=== PATIENT | female | born 1965 | race African-American/Black ===

== ENCOUNTER 2016-09-05 12:25 | Emergency (ER) | payer SELFPAY ==
[2016-09-05 12:33] VITALS: BP 116/52
--- NOTE | 2016-09-05 12:42 | ER Document Report ---
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 Him and aching. After doing that caused more severe pain. No cervical spine pain. No radiculopathy. Associated Symptoms: None Exacerbated by: Movement Relieved by: Denies Similar symptoms previously: Yes Recently seen / treated by doctor: No - ROS ROS below otherwise negative: Yes Systems Reviewed and Negative: Yes All other systems reviewed and negative - DERM Skin Color: Normal Past Medical History - General Information source: Patient - Social History Smoking Status: Never Smoker Frequency of alcohol use: None Drug Abuse: None Lives with: Family Family History: Reviewed & Not Pertinent Patient has suicidal ideation: No Patient has homicidal ideation: No - Medical History Medical History: Negative Renal/ Medical History: Denies: Hx Peritoneal Dialysis Musculoskeltal Medical History: 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 IN LAST 30 DAYS: No - HEENT HEENT: Atraumatic, Normocephalic - NECK Neck: Supple - RESPIRATORY O2 Sat by Pulse Oximetry: 95 - MUSCULOSKELETAL/EXTREMETIES Musculoskeletal/Extremeties: MAEW, FROM, Tender - Right deltoid muscle and tendon at the bicipital insertion - NEURO Level of Consciousness: Awake, Alert Motor/Sensory: No Motor Deficit, No Sensory Deficit - DERM Integumentary: Warm, Dry, No Rash Course - Vital Signs Vital signs: Temp Pulse Resp BP Pulse Ox 98.3 F 80 18 116/52 L 95 09/05/16 12:31 09/05/16 12:31 09/05/16 12:31 09/05/16 12:31 09/05/16 12:31 Procedures - Immobilization Right Shoulder Time completed: 13:05 Pre-Proc Neuro Vasc Exam: Normal Immobilizer type: Sling Performed by: PCT Post-Proc Neuro Vasc Exam: Normal Alignment checked and good: Yes Discharge - Discharge Clinical Impression: right deltoid muscle strain, tendinitis Condition: Good Disposition: HOME, SELF-CARE Instructions: Warm Packs ([facility]), Anti-Inflammatory Medication ([facility]), Toradol Injection ([facility]), Ultram ([facility]), Muscle Strain ([facility]) Additional Instructions: warm compress see your doctor for follow up if persists expect it to hurt for a few more days to er any concerns Please complete the patient satisfaction survey if you get one, and return it.. If you do not receive a survey, then you can go to the [facility] website, [email or web address] and place your comments about your very good care. Thank you very much. It was a pleasure being your medical provider today. Prescriptions: Ibuprofen [Motrin 600 mg Tablet] 600 mg PO Q8HP PRN #30 tablet PRN Reason: Tramadol HCl [Ultram 50 mg Tablet] 50 mg PO ASDIR PRN #20 tablet PRN Reason: Forms: Return to Work
[2016-09-05] MEDS ORDERED: KETOROLAC TROMETHAMINE 60 MG/2 ML SDV IM ONE (12:47)
== END 2016-09-05 13:10 | disposition home or self-care (01) ==
LOC: ER 12:25
DX: S46.811A Strain of other muscles, fascia and tendons at shoulder and upper arm level, right arm, initial encounter (principal); X50.0XXA Overexertion from strenuous movement or load, initial encounter; Y93.89 Activity, other specified; Y92.89 Other specified places as the place of occurrence of the external cause; Y99.0 Civilian activity done for income or pay; M77.9 Enthesopathy, unspecified
CPT/HCPCS: 99283; 96372; J1885

== ENCOUNTER 2016-09-05 22:11 | Emergency (ER) | payer SELFPAY ==
[2016-09-05] MEDS ORDERED: OXYCODONE-ACETAMINOPHEN 5-325 MG TABLET PO ONE (23:27)
--- NOTE | 2016-09-05 23:33 | ER Document Report ---
HPI - HPI Patient complains to provider of: right shoulder pain Onset: This morning Onset/Duration: Sudden, Persistent Quality of pain: Throbbing Severity: Severe Pain Level: 5 Context: Patient presents emergency department with complaints of right sided shoulder pain started this morning. Patient was evaluated and treated in the emergency department earlier today for same pain. Patient reports she's been taking the Motrin all day without relief of pain. She denies injury. She reports she works in the [employer] and yesterday was lifting a lot of heavy pots. Patient denies past medical history of injury to the area. Denies other symptoms such as fever vomiting diarrhea Associated Symptoms: None Exacerbated by: Movement Relieved by: Denies Similar symptoms previously: Yes Recently seen / treated by doctor: Yes - REPRODUCTIVE LMP: na - DERM Skin Color: Normal Past Medical History - General Information source: Patient Last Menstrual Period: menopause - Social History Smoking Status: Current Every Day Smoker Cigarette use (# per day): Yes Chew tobacco use (# tins/day): No Frequency of alcohol use: None Drug Abuse: None Occupation: [employer] Lives with: Family Family History: Reviewed & Not Pertinent Patient has suicidal ideation: No Patient has homicidal ideation: No Renal/ Medical History: Denies: Hx Peritoneal Dialysis GI Medical History: Reports: Hx Gastroesophageal Reflux Disease Musculoskeltal Medical History: 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 IN LAST 30 DAYS: No - HEENT HEENT: Atraumatic, Normocephalic - NECK Neck: Normal Inspection, Supple. negative: Lymphadenopathy-Left, Lymphadenopathy-Right - RESPIRATORY Respiratory: Breath Sounds Normal, No Respiratory Distress O2 Sat by Pulse Oximetry: 96 - CARDIOVASCULAR Cardiovascular: Regular Rate - MUSCULOSKELETAL/EXTREMETIES Musculoskeletal/Extremeties: Tender - right shoulder ttp, no obvious deformity, no swelling/warmth, no erythema, c/o pain with movement, good radial pulse, brisk cap refill Course - Re-evaluation Re-evalutation: 09/05/16 23:34 Suspect bursitis. Patient was instructed on bursitis care and treatment. She was instructed to follow up with orthopedics on Wednesday. - Vital Signs Vital signs: Temp Pulse Resp BP Pulse Ox 98.6 F 79 18 135/47 H 96 09/05/16 23:03 09/05/16 23:03 09/05/16 23:03 09/05/16 23:03 09/05/16 23:03 - Diagnostic Test Radiology reviewed: Image reviewed, Reports reviewed - RAD/ SHOULDER RIGHT 2 OR MORE VIEWS IMPRESSION: NEGATIVE STUDY OF THE RIGHT SHOULDER. NO RADIOGRAPHIC EVIDENCE OF ACUTE INJURY. Discharge - Discharge Clinical Impression: Elevated blood pressure reading Right shoulder pain Qualifiers: Chronicity: acute Qualified Code(s): M25.511 - Pain in right shoulder Bursitis Qualifiers: Bursitis location: shoulder Condition: Stable Disposition: HOME, SELF-CARE Instructions: Oral Narcotic Medication ([facility]), Bursitis ([facility]) Additional Instructions: *You have been evaluated for right shoulder pain, suspect bursitis *Rest/Ice/Elevate *Follow up with orthopedics Wednesday-call for an appointment *Continue Ibuprofen as prescribed *Take medication as prescribed *Return to ED for worsening condition, changes, needs Monitor your blood pressure. Your blood pressure was elevated today. This may be because you were anxious, in pain or because you need medication. It is important to follow up with your primary care provider for full evaluation. Prescriptions: Oxycodone HCl/Acetaminophen [Percocet 5-325 mg Tablet] 1 - 2 tab PO ASDIR PRN # 15 tablet PRN Reason: Forms: Elevated Blood Pressure Referrals: JERRY VIRAMONTES PA-C [Primary Care Provider] - Follow up as needed
[2016-09-06 00:10] VITALS: BP 135/59
== END 2016-09-06 00:09 | disposition home or self-care (01) ==
LOC: ER 22:11
DX: M25.511 Pain in right shoulder (principal); R03.0 Elevated blood-pressure reading, without diagnosis of hypertension; F17.210 Nicotine dependence, cigarettes, uncomplicated
CPT/HCPCS: 99283

== ENCOUNTER 2016-09-13 20:15 | Emergency (ER) | payer SELFPAY ==
--- NOTE | 2016-09-13 22:20 | ER Document Report ---
ED General - General Chief Complaint: Abdominal Pain Stated Complaint: ABDOMINAL PAIN Notes: Patient is 51-year-old female presents with complaints of abdominal pain. Pain is diffuse throughout the abdomen. Some distention. No bowel movement in several days. No vomiting. No fevers. Patient says she started having constipation and pain after taking OxyContin for a bursitis her left shoulder. Last dose of OxyContin was Wednesday. She still had a bowel movement. No other complaints this time. TRAVEL OUTSIDE OF THE [place] 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 Denies recent illness. EENT: Denies eye, ear, throat, or mouth pain or symptoms. Denies nasal or sinus congestion. RESPIRATORY: Denies cough, cold, or chest congestion. Denies shortness of breath, difficulty breathing, or wheezing. GASTROINTESTINAL: Has abdominal pain. No nausea vomiting. GENITOURINARY: Denies difficulty urinating, painful urination, burning, frequency, or blood in urine. MUSCULOSKELETAL: Denies neck or back pain or joint pain or swelling. SKIN: Denies rash or skin lesions. HEMATOLOGIC : Denies easy bruising or bleeding. NEUROLOGICAL: Denies altered mental status or loss of consciousness. Denies headache. Denies weakness or paralysis or loss of use of either side. Denies problems with gait or speech. Denies sensory or motor loss. ALL OTHER SYSTEMS REVIEWED AND NEGATIVE. Physical Exam - Vital signs Vitals: Temp Pulse BP Pulse Ox 99.1 F 88 115/66 97 09/13/16 21:03 09/13/16 21:03 09/13/16 21:03 09/13/16 21:03 - Notes Notes: General Appearance: Well nourished, alert, cooperative, no acute distress, mild to moderate obvious discomfort. Vitals: reviewed, See vital signs table. Head: no swelling or tenderness to the head Eyes: PERRL, EOMI, Conjuctiva clear Mouth: No decreasd moisture Lungs: No wheezing, No rales, No rhonci, No accessory muscle use, good air exchange bilaterally. Heart: Normal rate, Regular rythm, No murmur, no rub Abdomen: Normal BS, soft, No rigidity, mild diffuse abdominal tenderness that is worse in the right side. Abdomen is soft and not rigid., No guarding, no rebound, no abdominal masses, no organomegaly Extremities: strength 5/5 in all extremities, good pulses in all extremities, no swelling or tenderness in the extremities, no edema. Skin: warm, dry, appropriate color, no rash Neuro: speech clear, oriented x 3, normal affect, responds appropriately to questions. Course - Vital Signs Vital signs: Temp Pulse Resp BP Pulse Ox 98.8 F 82 20 132/84 H 98 09/14/16 01:49 09/14/16 01:49 09/14/16 01:49 09/14/16 01:49 09/14/16 01:49 - Transfer of Care Notes: 09/14/16 02:13 After the second enema the patient had a bowel movement and is feeling improved. She was given lactulose as well. I'll discharge her home with Miralax. Discharge - Discharge Clinical Impression: Constipation Qualifiers: Constipation type: unspecified constipation type Qualified Code(s): K59.00 - Constipation, unspecified Condition: Good Disposition: HOME, SELF-CARE Additional Instructions: ABDOMINAL PAIN: There are many causes of abdominal pain. Pain can mean a serious problem requiring surgery (such as appendicitis). It can also be an innocent problem that goes away on its own (such as a viral infection). Often, time must pass to determine the cause of pain. The physician does not feel that hospitalization is necessary, at present. Things may change within the next 24 hours. Call the doctor or come back for re- examination if any problems occur, such as: (1) Pain that becomes more severe, steady, or becomes concentrated in one specific area. Also, pain that is more severe with movement or coughing. (2) Vomiting that persists or becomes more frequent. (3) Blood in the vomitus, urine, or bowel movements. Blood in the stool may have a tarry or black appearance. (4) Shaking chills or fever greater than 100 degrees F. (5) The abdomen becomes more distended or swollen. (6) Bowel movements cease. (7) Failure to improve as expected. NORMAL EXAM AND WORKUP: At this time, your examination and workup show no significant abnormality. No significant abnormal physical findings are noted. Xray studies that were ordered show no significant abnormality. Although your examination and all studies that were ordered showed no significant abnormal finding, there are no examinations and no studies that are 100% accurate. There is always the possibility that some abnormality could exist and not be detected with physical examination or within the limits and capabilities of laboratory and other studies. You should return or follow up as you were instructed on your visit today for further evaluation if your symptoms do not resolve. CONSTIPATION: Constipation is a common problem. It is especially likely as you get older. Constipation is a common cause of abdominal pain, but sometimes causes no symptoms at all. Causes of constipation include certain medications, dehydration, diets, inactivity, and low-fiber intake. Rarely, it can be a symptom of underlying disease. The physician has evaluated you for this. Avoid constipation by eating a diet high in fiber, fruits, and vegetables. Drink plenty of liquids. Get regular exercise. If possible, avoid constipating medicines like narcotic pain medication. Some vitamin tablets can cause constipation. Stool softeners may be needed for difficult cases. An excellent stool softener is Konsyl which is available at [employer], and [facility] drug store. Just add a teaspoon to a glass of pineapple or orange juice daily or twice a day if needed. Laxatives are useful for occasional constipation. You should use them only when necessary. Too-frequent use can make your bowels dependent on them. Some over the counter laxatives available without prescription are: Milk of Magnesia, 1-2 tablespoons twice a day Dulcolax, 5 mg pill or 10 mg suppository. Citrate of Magnesia, 4-5 ounces a day for a day or two For acute constipation, Fleet's Enemas and Dulcolax suppositories are helpful. Chronic, shelter use of laxatives or enemas is not a good idea. Your bowel may become dependant on them. You do not need to have a bowel movement every day. Many people do fine with a bowel movement every three or four days. You should call your doctor or return for re-evaluation if you pass blood in the stool, or if you develop fever or increasing abdominal pain. LAXATIVE: A laxative agent has been prescribed for your condition. This should result in passage of stool within 12 hours. Some mild intestinal cramping is common as the hard stool begins to move. You may have loose or runny stools for a short time. Contact your doctor if there is severe cramping, vomiting, or passage of blood. Return for further care if this medicine fails to improve your condition. FOLLOW-UP CARE: If you have been referred to a physician for follow-up care, call the physician s office for an appointment as you were instructed or within the next two days. If you experience worsening or a significant change in your symptoms, notify the physician immediately or return to the Emergency Department at any time for re-evaluation. Please return to the ER immediately if you have fevers, vomiting, worsening pain , or feel unwell. Prescriptions: Polyethylene Glycol 3350 [Miralax] 1 cap PO DAILY #527 powder Referrals: JERRY VIRAMONTES PA-C [Primary Care Provider] - Follow up in 3-5 days
[2016-09-13] MEDS ORDERED: MINERAL OIL 30 ML UDCUP PR ONE (23:05)
[2016-09-14] MEDS ORDERED: LACTULOSE SYRUP 20 GM/30 ML UDCUP PO ONE (00:36)
[2016-09-14] MEDS ORDERED: MINERAL OIL 30 ML UDCUP PR ONE (00:36)
[2016-09-14 02:52] VITALS: BP 131/64
== END 2016-09-14 02:53 | disposition home or self-care (01) ==
LOC: ER 20:15
DX: K59.00 Constipation, unspecified (principal); R10.84 Generalized abdominal pain
CPT/HCPCS: 99284; 74000; J3490 ×2

== ENCOUNTER 2016-09-27 11:02 | Emergency (ER) | payer SELFPAY ==
--- NOTE | 2016-09-27 12:09 | ER Document Report ---
ED Medical Screen (RME) - General Chief Complaint: Constipation Stated Complaint: BACK,ABDOMINAL PAIN, Mode of Arrival: Ambulatory Information source: Patient TRAVEL OUTSIDE OF THE [place] IN LAST 30 DAYS: No - HPI Onset: Yesterday Onset/Duration: Gradual Context: SEVERAL WEEKS' PROBLEM W/ CONSTIPATION, TAKING LAXATIVES, TOOK 2 FLEETS ENEMAS LAST PM Quality of pain: Cramping Severity: Moderate Associated Symptoms: Chills, Sweating Exacerbated by: Denies Relieved by: Denies Similar symptoms previously: No Recently seen / treated by doctor: Yes - Related Data Allergies/Adverse Reactions: No Known Allergies Allergy (Verified 09/27/16 12:01) Home Medications: Current Home Medications No Home Medications 09/27/16 [History] Past Medical History - General Information source: Patient Renal/ Medical History: Denies: Hx Peritoneal Dialysis GI Medical History: Reports: Hx Gastroesophageal Reflux Disease Musculoskeltal Medical History: 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 Denies: Hx Abdominal Surgery - Immunizations Hx Diphtheria, Pertussis, Tetanus Vaccination: Yes Review of Systems - Review of Systems Constitutional: See HPI Gastrointestinal: See HPI Physical Exam - Vital signs Vitals: Temp Pulse Resp BP Pulse Ox 98.5 F 97 17 125/62 97 09/27/16 11:16 09/27/16 11:16 09/27/16 11:16 09/27/16 11:16 09/27/16 11:16 Interpretation: Normal - General General appearance: Alert, Anxious In distress: Mild Course - Vital Signs Vital signs: Temp Pulse Resp BP Pulse Ox 98.5 F 97 17 125/62 97 09/27/16 11:16 09/27/16 11:16 09/27/16 11:16 09/27/16 11:16 09/27/16 11:16
[2016-09-27 12:40] LABS: ABSOLUTE BASOPHILS # (AUTO) 0.1 10^3/uL (0.0-0.2); ABSOLUTE LYMPHOCYTES (AUTO) 4.2 10^3/uL (0.5-4.7); ABSOLUTE MONOCYTES (AUTO) 1.1 10^3/uL (0.1-1.4); ABSOLUTE NEUT (AUTO) 12.6 10^3/uL (1.7-8.2); BASOPHILS % (AUTO) 0.7 % (0-2); EOSINOPHILS % (AUTO) 0.2 % (0-6); HEMATOCRIT 32.5 % (36.0-47.0); HEMOGLOBIN 10.9 g/dL (12.0-15.5); HGB HCT DIFFERENCE 0.2; LYMPHOCYTES % (AUTO) 23.5 % (13-45); MEAN CORPUSCULAR HEMOGLOBIN 34.5 pg (27.0-33.4); MEAN CORPUSCULAR HGB CONC 33.5 g/dL (32.0-36.0); MEAN CORPUSCULAR VOLUME 103 fl (80-97); MONOCYTES % (AUTO) 5.8 % (3-13); RED BLOOD COUNT 3.16 10^6/uL (3.72-5.28); RED CELL DISTRIBUTION WIDTH 14.9 % (11.5-14.0); SEGMENTED NEUTROPHILS % (AUTO) 69.8 % (42-78)
[2016-09-27 12:46] LABS: APPEARANCE,URINE CLEAR; BILIRUBIN,URINE NEGATIVE (NEGATIVE); GLUCOSE, URINE NEGATIVE (NEGATIVE); KETONES,URINE NEGATIVE (NEGATIVE); LEUKOCYTE ESTERASE,URINE NEGATIVE (NEGATIVE); NITRITE,URINE NEGATIVE (NEGATIVE); PROTEIN,URINE NEGATIVE (NEGATIVE); URINE SPECIFIC GRAVITY 1.017; UROBILINOGEN,URINE NEGATIVE mg/dL (<2.0)
[2016-09-27 12:52] LABS: ALANINE AMINOTRANSFERASE 18 U/L (9-52); ALBUMIN 3.8 g/dL (3.5-5.0); ALKALINE PHOSPHATASE 83 U/L (38-126); ANION GAP 18 (5-19); ASPARTATE AMINO TRANSFERASE 11 U/L (14-36); BILIRUBIN,DIRECT 0.3 mg/dL (0.0-0.4); BILIRUBIN,TOTAL 0.6 mg/dL (0.2-1.3); BLOOD UREA NITROGEN 7 mg/dL (7-20); CALCIUM 9.6 mg/dL (8.4-10.2); CARBON DIOXIDE 23 mmol/L (22-30); CHLORIDE 105 mmol/L (98-107); GLUCOSE 81 mg/dL (75-110); LIPASE 80.6 U/L (23-300); POTASSIUM 4.2 mmol/L (3.6-5.0); SODIUM 145.9 mmol/L (137-145); TOTAL PROTEIN 8.4 g/dL (6.3-8.2)
[2016-09-27] MEDS ORDERED: ONDANSETRON HCL INJ/PF 4 MG/2 ML SDV IV ONE (15:08)
[2016-09-27] MEDS ORDERED: MORPHINE SULFATE 10 MG/ML INJ IV ONE (15:08)
--- NOTE | 2016-09-27 15:39 | ER Document Report ---
ED General - General Chief Complaint: Constipation Stated Complaint: BACK,ABDOMINAL PAIN, Mode of Arrival: Ambulatory Information source: Patient Notes: 51-year-old female presents with complaints of constipation of a few week duration. Patient has taken multiple enemas with no difficulty Patient denies any fevers or chills TRAVEL OUTSIDE OF THE [place] IN LAST 30 DAYS: No - HPI Onset: Other Onset/Duration: Persistent Quality of pain: Cramping Severity: Moderate Pain Level: 2 Associated symptoms: Other Exacerbated by: Denies Relieved by: Denies Similar symptoms previously: Yes Recently seen / treated by doctor: Yes - Related Data Allergies/Adverse Reactions: No Known Allergies Allergy (Verified 09/27/16 12:01) Past Medical History - General Information source: Patient - Social History Smoking Status: Never Smoker Cigarette use (# per day): No Chew tobacco use (# tins/day): No Smoking Education Provided: No Family History: Reviewed & Not Pertinent Patient has suicidal ideation: No Patient has homicidal ideation: No Renal/ Medical History: Denies: Hx Peritoneal Dialysis GI Medical History: Reports: Hx Gastroesophageal Reflux Disease Musculoskeltal Medical History: 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 Denies: Hx Abdominal Surgery - Immunizations Hx Diphtheria, Pertussis, Tetanus Vaccination: Yes Review of Systems - Review of Systems Notes: PHYSICAL EXAMINATION: GENERAL: Well-appearing, well-nourished and in no acute distress. HEAD: Atraumatic, normocephalic. EYES: Pupils equal round and reactive to light, extraocular movements intact, conjunctiva are normal. ENT: Nares patent, oropharynx clear without exudates. Moist mucous membranes. NECK: Normal range of motion, supple without lymphadenopathy LUNGS: Breath sounds clear to auscultation bilaterally and equal. No wheezes rales or rhonchi. HEART: Regular rate and rhythm without murmurs ABDOMEN: Soft, generalized tenderness all throughout with mild guarding Female : deferred Musculoskeletal: Normal range of motion, no pitting or edema. No cyanosis. NEUROLOGICAL: Cranial nerves grossly intact. Normal speech, normal gait. Normal sensory, motor exams PSYCH: Normal mood, normal affect. SKIN: Warm, Dry, normal turgor, no rashes or lesions noted. Physical Exam - Vital signs Vitals: Temp Pulse Resp BP Pulse Ox 98.5 F 97 17 125/62 97 09/27/16 11:16 09/27/16 11:16 09/27/16 11:16 09/27/16 11:16 09/27/16 11:16 Course - Re-evaluation Re-evalutation: 09/27/16 15:39 Patient's white count is noted to be elevated, CT has been ordered to evaluate for any life-threatening issues 09/27/16 16:23 CT noted no significant abnormality except for large bowels consistent with ileus, patient will be given medications otherwise stable for discharge After performing a Medical Screening Examination, I estimate there is LOW risk for ACUTE APPENDICITIS, BOWEL OBSTRUCTION, ACUTE CHOLECYSTITIS, PERFORATED DIVERTICULITIS, INCARCERATED HERNIA, PANCREATITIS, PELVIC INFLAMMATORY DISEASE, PERFORATED ULCER, ECTOPIC , or TUBO-OVARIAN ABSCESS, thus I consider the discharge disposition reasonable. Also, there is no evidence or peritonitis , sepsis, or toxicity. I have reevaluated this patient multiple times and no significant life threatening changes are noted. The patient and I have discussed the diagnosis and risks, and we agree with discharging home with close follow-up with the understanding that symptoms and presentations can change. We also discussed returning to the Emergency Department immediately if new or worsening symptoms occur. We have discussed the symptoms which are most concerning (e.g., bloody stool, fever, changing or worsening pain, vomiting) that necessitate immediate return. - Vital Signs Vital signs: Temp Pulse Resp BP Pulse Ox 98.5 F 97 17 125/62 97 09/27/16 11:16 09/27/16 11:16 09/27/16 11:16 09/27/16 11:16 09/27/16 11:16 - Laboratory Result Diagrams: 09/27/16 12:18 09/27/16 12:18 Laboratory results interpreted by me: 09/27/16 09/27/16 12:18 12:18 WBC 18.0 H RBC 3.16 L Hgb 10.9 L Hct 32.5 L MCV 103 H MCH 34.5 H RDW 14.9 H Absolute Neutrophils 12.6 H Sodium 145.9 H AST 11 L Total Protein 8.4 H - Diagnostic Test Radiology reviewed: Image reviewed, Reports reviewed Discharge - Discharge Clinical Impression: Ileus Constipation Qualifiers: Constipation type: unspecified constipation type Qualified Code(s): K59.00 - Constipation, unspecified Abdominal pain Qualifiers: Abdominal location: generalized Qualified Code(s): R10.84 - Generalized abdominal pain Condition: Stable Disposition: HOME, SELF-CARE Instructions: Abdominal Pain ([facility]) Prescriptions: Peg 3350/Na Sulf,Bicarb,Cl/KCl [Golytely Solution 4000 ml] 4,000 ml PO DAILY #1 bottle Referrals: JERRY VIRAMONTES PA-C [Primary Care Provider] - Follow up tomorrow
[2016-09-27 16:49] VITALS: BP 130/56
== END 2016-09-27 16:48 | disposition home or self-care (01) ==
LOC: ER 11:02
DX: K56.7 Ileus, unspecified (principal); K59.00 Constipation, unspecified; R10.84 Generalized abdominal pain
CPT/HCPCS: 99284; 96374; 96375; 36415; 83690; 85025; 80053; 81001; 74022; 74177; J2270; J2405

== ENCOUNTER 2016-10-04 10:16 | Emergency (ER) | payer SELFPAY ==
--- NOTE | 2016-10-04 10:49 | ER Document Report ---
Doctor's Note Notes: 10/04/16 10:49 This is a 51-year-old female that states she was initially seen September 05 for nontraumatic right shoulder pain and was prescribed oxycodone. Patient states she's been constipated since and has been evaluated in the ER for abdominal pain and constipation. Patient states she's gotten limited relief from stool softeners and GI cleansing. She presents with diffuse abdominal pain and appears quite uncomfortable in triage.
[2016-10-04] MEDS ORDERED: ONDANSETRON HCL INJ/PF 4 MG/2 ML SDV IV ONE (10:50)
[2016-10-04] MEDS ORDERED: NORMAL SALINE 1000 ML 1,000 ML IV PRN (10:50)
[2016-10-04 11:22] LABS: APPEARANCE,URINE SLIGHTLY-CLOUDY; BILIRUBIN,URINE NEGATIVE (NEGATIVE); GLUCOSE, URINE NEGATIVE (NEGATIVE); KETONES,URINE NEGATIVE (NEGATIVE); LEUKOCYTE ESTERASE,URINE NEGATIVE (NEGATIVE); NITRITE,URINE NEGATIVE (NEGATIVE); PROTEIN,URINE NEGATIVE (NEGATIVE); URINE SPECIFIC GRAVITY 1.035
[2016-10-04 11:40] LABS: ABSOLUTE BASOPHILS # (AUTO) 0.1 10^3/uL (0.0-0.2); ABSOLUTE LYMPHOCYTES (AUTO) 2.4 10^3/uL (0.5-4.7); ABSOLUTE MONOCYTES (AUTO) 0.7 10^3/uL (0.1-1.4); ABSOLUTE NEUT (AUTO) 13.2 10^3/uL (1.7-8.2); BASOPHILS % (AUTO) 0.4 % (0-2); EOSINOPHILS % (AUTO) 0.2 % (0-6); HEMATOCRIT 31.6 % (36.0-47.0); HEMOGLOBIN 10.5 g/dL (12.0-15.5); HGB HCT DIFFERENCE -0.1; LYMPHOCYTES % (AUTO) 14.4 % (13-45); MEAN CORPUSCULAR HEMOGLOBIN 34.1 pg (27.0-33.4); MEAN CORPUSCULAR HGB CONC 33.2 g/dL (32.0-36.0); MEAN CORPUSCULAR VOLUME 103 fl (80-97); MONOCYTES % (AUTO) 4.1 % (3-13); RED BLOOD COUNT 3.07 10^6/uL (3.72-5.28); RED CELL DISTRIBUTION WIDTH 15.5 % (11.5-14.0); SEGMENTED NEUTROPHILS % (AUTO) 80.9 % (42-78); WHITE BLOOD COUNT 16.4 10^3/uL (4.0-10.5)
[2016-10-04 11:46] LABS: PROTHROMBIN TIME 13.6 SEC (11.4-15.4)
[2016-10-04 11:58] LABS: ALANINE AMINOTRANSFERASE 18 U/L (9-52); ALBUMIN 3.4 g/dL (3.5-5.0); ALKALINE PHOSPHATASE 98 U/L (38-126); ANION GAP 12 (5-19); ASPARTATE AMINO TRANSFERASE 11 U/L (14-36); BILIRUBIN,DIRECT 0.4 mg/dL (0.0-0.4); BILIRUBIN,TOTAL 0.7 mg/dL (0.2-1.3); BLOOD UREA NITROGEN 5 mg/dL (7-20); CALCIUM 9.6 mg/dL (8.4-10.2); CARBON DIOXIDE 25 mmol/L (22-30); CHLORIDE 104 mmol/L (98-107); CREATININE RESULT 0.49 mg/dL (0.52-1.25); GLUCOSE 98 mg/dL (75-110); POTASSIUM 3.8 mmol/L (3.6-5.0); SODIUM 140.9 mmol/L (137-145)
[2016-10-04] MEDS ORDERED: METOCLOPRAMIDE HCL INJ/PF 10 MG/2 ML SDV IV ONE (12:54)
--- NOTE | 2016-10-04 14:55 | ER Document Report ---
ED GI/ - General Chief Complaint: Abdominal Pain Stated Complaint: ABDOMINAL PAIN Notes: Patient is a 51-year-old female complaining of constipation and abdominal pain. Patient has been in the emergency department multiple times for this abdominal pain she states is related to being prescribed oxycodone for a nontraumatic right shoulder injury September 05. Patient since stopped the medication was having difficulties regulating her bowel symptoms. Patient states that she has been taking laxatives and enemas with positive bowel movements no evidence of blood, dark stools. Denies any hemorrhoids, rectal bleeding. She admits to nausea today but otherwise denies any vomiting. She states that she's been eating a normal diet and tolerating that well. She states that her pain today is a cramping pain that is diffuse all over with associated nausea. She denies any fevers or chills at home. She is due to follow up with GI Dr. Alfred tomorrow TRAVEL OUTSIDE OF THE [place] 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 Denies: Hx Abdominal Surgery - Immunizations Hx Diphtheria, Pertussis, Tetanus Vaccination: Yes Review of Systems - Review of Systems Constitutional: No symptoms reported Cardiovascular: No symptoms reported Respiratory: No symptoms reported Gastrointestinal: See HPI Genitourinary: No symptoms reported -: Yes All other systems reviewed and negative Physical Exam - Vital signs Vitals: Temp Pulse Resp BP Pulse Ox 98.1 F 83 16 124/50 L 99 10/04/16 10:20 10/04/16 10:20 10/04/16 10:20 10/04/16 10:20 10/04/16 10:20 - Notes Notes: PHYSICAL EXAM GENERAL: Alert, interacts well. HEAD: Normocephalic, atraumatic. EYES: Pupils equal, round, and reactive to light. Extraocular movements intact. ENT: Oral mucosa moist, tongue midline. NECK: Full range of motion. Supple. Trachea midline. LUNGS: Clear to auscultation bilaterally, no wheezes, rales, or rhonchi. No respiratory distress. HEART: Regular rate and rhythm. No murmurs, gallops, or rubs. ABDOMEN: Soft, nondistended, minimally tender. No guarding, rebound, or rigidity.. Bowel sounds present in all 4 quadrants. Rectal exam: Normal sphincter tone, no evidence of impacted stool. EXTREMITIES: Moves all 4 extremities spontaneously. No edema, radial and dorsalis pedis pulses 2/4 bilaterally. No cyanosis. NEUROLOGICAL: Alert and oriented x4. Normal speech. PSYCH: Normal affect, normal mood. SKIN: Warm, dry, normal turgor. No rashes or lesions noted. Course - Re-evaluation Re-evalutation: 10/04/16 18:49 Patient is a 51-year-old female who is hemodynamically stable, no acute distress and afebrile. CBC with mild elevation in white blood cells. No evidence of infectious process or acute abdominal process CT the abdomen with by mouth and IV contrast. No evidence of obstruction, perforation. Tolerating by mouth without any difficulty. She is responded well to by mouth Zofran. Discussed with her constipation medications as well as clear liquid diet she follows up with Dr. Alfred tomorrow. - Vital Signs Vital signs: Temp Pulse Resp BP Pulse Ox 97.9 F 70 16 112/49 L 95 10/04/16 15:34 10/04/16 15:34 10/04/16 15:34 10/04/16 15:34 10/04/16 15:34 - Laboratory Result Diagrams: 10/04/16 11:10 10/04/16 11:10 Laboratory results interpreted by me: 10/04/16 10/04/16 10/04/16 11:00 11:10 11:10 WBC 16.4 H RBC 3.07 L Hgb 10.5 L Hct 31.6 L MCV 103 H MCH 34.1 H RDW 15.5 H Seg Neutrophils % 80.9 H Absolute Neutrophils 13.2 H BUN 5 L Creatinine 0.49 L AST 11 L Albumin 3.4 L Urine Urobilinogen 4.0 H - Diagnostic Test Radiology reviewed: Image reviewed, Reports reviewed Discharge - Discharge Clinical Impression: Constipation Condition: Good Disposition: HOME, SELF-CARE Instructions: Clear Liquid Diet ([facility]) Additional Instructions: You can take docusate (Colace as prescribed) [id number] ABDOMINAL PAIN: There are many causes of abdominal pain. Pain can mean a serious problem requiring surgery (such as appendicitis). It can also be an innocent problem that goes away on its own (such as a viral infection). Often, time must pass to determine the cause of pain. The physician does not feel that hospitalization is necessary, at present. Things may change within the next 24 hours. Call the doctor or come back for re- examination if any problems occur, such as: (1) Pain that becomes more severe, steady, or becomes concentrated in one specific area. Also, pain that is more severe with movement or coughing. (2) Vomiting that persists or becomes more frequent. (3) Blood in the vomitus, urine, or bowel movements. Blood in the stool may have a tarry or black appearance. (4) Shaking chills or fever greater than 100 degrees F. (5) The abdomen becomes more distended or swollen. (6) Bowel movements cease. (7) Failure to improve as expected. NORMAL EXAM AND WORKUP: At this time, your examination and workup show no significant abnormality. No significant abnormal physical findings are noted. All laboratory, EKG, and imaging (x-ray, CT scans, ultrasound) studies that were ordered show no significant abnormality. Although your examination and all studies that were ordered showed no significant abnormal finding, there are no examinations and no studies that are 100% accurate. There is always the possibility that some abnormality could exist and not be detected with physical examination or within the limits and capabilities of laboratory and other studies. You should return or follow up as you were instructed on your visit today for further evaluation if your symptoms do not resolve. CONSTIPATION: Constipation is a common problem. It is especially likely as you get older. Constipation is a common cause of abdominal pain, but sometimes causes no symptoms at all. Causes of constipation include certain medications, dehydration, diets, inactivity, and low-fiber intake. Rarely, it can be a symptom of underlying disease. The physician has evaluated you for this. Avoid constipation by eating a diet high in fiber, fruits, and vegetables. Drink plenty of liquids. Get regular exercise. If possible, avoid constipating medicines like narcotic pain medication. Some vitamin tablets can cause constipation. Stool softeners may be needed for difficult cases. An excellent stool softener is Konsyl which is available at [employer], and [employer] drug store. Just add a teaspoon to a glass of pineapple or orange juice daily or twice a day if needed. Laxatives are useful for occasional constipation. You should use them only when necessary. Too-frequent use can make your bowels dependent on them. Some over the counter laxatives available without prescription are: Milk of Magnesia, 1-2 tablespoons twice a day Dulcolax, 5 mg pill or 10 mg suppository. Citrate of Magnesia, 4-5 ounces a day for a day or two For acute constipation, Fleet's Enemas and Dulcolax suppositories are helpful. Chronic, [facility] use of laxatives or enemas is not a good idea. Your bowel may become dependant on them. You do not need to have a bowel movement every day. Many people do fine with a bowel movement every three or four days. You should call your doctor or return for re-evaluation if you pass blood in the stool, or if you develop fever or increasing abdominal pain. BULK LAXATIVES: Bulk laxatives make the stool softer and bulkier. They're useful for preventing constipation. You can choose between psyllium, methylcellulose, and polycarbophil. They are available without a prescription. Psyllium brand names include Konsyl, Metamucil, Perdiem, Effer-Syllium and Hydrocil. It's available as powder, flavored drink powder, or chewable. The usual dose of psyllium powder is one heaping teaspoon in water each morning, increasing to twice a day if needed. Bradley juice can disguise the slightly grainy texture. Methylcellulose is marketed as Citrucel and other brands. The average dose is two grams in a cup of water one to three times a day. Polycarbophil is marketed as Fiber-Con. Take two tablets with a cup of water one to three times a day. LAXATIVE: A laxative agent has been prescribed for your condition. This should result in passage of stool within 12 hours. Some mild intestinal cramping is common as the hard stool begins to move. You may have loose or runny stools for a short time. Contact your doctor if there is severe cramping, vomiting, or passage of blood. Return for further care if this medicine fails to improve your condition. FOLLOW-UP CARE: If you have been referred to a physician for follow-up care, call the physician s office for an appointment as you were instructed or within the next two days. If you experience worsening or a significant change in your symptoms, notify the physician immediately or return to the Emergency Department at any time for re-evaluation. Referrals: JERRY VIRAMONTES PA-C [Primary Care Provider] - Follow up as needed ZORAN ALFRED MD [ACTIVE STAFF] - Follow up tomorrow
[2016-10-04 15:59] VITALS: BP 112/49
--- NOTE | 2016-10-04 16:36 | EKG REPORT ---
SEVERITY:- ABNORMAL ECG - SINUS RHYTHM CONSIDER LEFT VENTRICULAR HYPERTROPHY : Confirmed by: Davin Vizcaino MD 04-Oct-2016 16:35:51
== END 2016-10-04 15:34 | disposition home or self-care (01) ==
LOC: ER 10:16
DX: K59.00 Constipation, unspecified (principal); R10.9 Unspecified abdominal pain; R11.0 Nausea; F17.200 Nicotine dependence, unspecified, uncomplicated
CPT/HCPCS: 93005; 99284; 96361; 96374; 96375; 36415; 84702; 85025; 85610; 80053; 81001; 74177; 93010; J2765; J2405; J7030

== ENCOUNTER 2016-10-15 12:35 | Emergency (ER) | payer SELFPAY ==
[2016-10-15] MEDS ORDERED: TRAMADOL HCL 50 MG TABLET PO ONE (14:32)
[2016-10-15] MEDS ORDERED: PROMETHAZINE HCL 25 MG TABLET PO ONE (14:33)
--- NOTE | 2016-10-15 14:35 | ER Document Report ---
ED Medical Screen (RME) - General Chief Complaint: Abdominal Pain Stated Complaint: ABDOMINAL PAIN Time Seen by Provider: 10/15/16 14:32 Notes: Patient is complaining of pain in her lower abdomen for at least a month. She had a colonoscopy performed on Wednesday. Was told that they removed a couple of polyps. She had a good bowel movement on Wednesday, but then decided to try an enema on Wednesday and says she noted some blood rectally. Since Wednesday, she is been passing only a small amount of stool and this pain has been getting worse. Her pain now is worse than before she had a colonoscopy. Has vomited once. Has not seen any blood in the vomitus and no more blood in the stools which have been very scant. Denies any fever. Denies UTI symptoms. Denies abdominal surgeries. TRAVEL OUTSIDE OF THE [place] IN LAST 30 DAYS: No - Related Data Allergies/Adverse Reactions: No Known Allergies Allergy (Verified 10/15/16 13:07) Past Medical History Renal/ Medical History: Denies: Hx Peritoneal Dialysis GI Medical History: Reports: Hx Gastroesophageal Reflux Disease Musculoskeltal Medical History: 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 Denies: Hx Abdominal Surgery - Immunizations Hx Diphtheria, Pertussis, Tetanus Vaccination: Yes Physical Exam - Vital signs Vitals: Temp Pulse Resp BP Pulse Ox 98.1 F 81 20 120/63 97 10/15/16 13:07 10/15/16 13:07 10/15/16 13:07 10/15/16 13:07 10/15/16 13:07 Course - Vital Signs Vital signs: Temp Pulse Resp BP Pulse Ox 98.1 F 81 20 120/63 97 10/15/16 13:07 10/15/16 13:07 10/15/16 13:07 10/15/16 13:07 10/15/16 13:07
[2016-10-15 15:19] LABS: ABSOLUTE LYMPHOCYTES (AUTO) 2.3 10^3/uL (0.5-4.7); ABSOLUTE MONOCYTES (AUTO) 0.9 10^3/uL (0.1-1.4); BASOPHILS % (AUTO) 0.2 % (0-2); EOSINOPHILS % (AUTO) 0.1 % (0-6); HEMATOCRIT 31.1 % (36.0-47.0); HGB HCT DIFFERENCE -1.1; LYMPHOCYTES % (AUTO) 19.1 % (13-45); MEAN CORPUSCULAR HEMOGLOBIN 33.3 pg (27.0-33.4); MEAN CORPUSCULAR HGB CONC 32.1 g/dL (32.0-36.0); MEAN CORPUSCULAR VOLUME 104 fl (80-97); RED CELL DISTRIBUTION WIDTH 16.4 % (11.5-14.0); SEGMENTED NEUTROPHILS % (AUTO) 73.6 % (42-78); WHITE BLOOD COUNT 12.2 10^3/uL (4.0-10.5)
[2016-10-15 15:22] LABS: APPEARANCE,URINE SLIGHTLY-CLOUDY; BILIRUBIN,URINE NEGATIVE (NEGATIVE); GLUCOSE, URINE NEGATIVE (NEGATIVE); KETONES,URINE 20 mg/dL (NEGATIVE); LEUKOCYTE ESTERASE,URINE NEGATIVE (NEGATIVE); NITRITE,URINE NEGATIVE (NEGATIVE); PROTEIN,URINE NEGATIVE (NEGATIVE); URINE SPECIFIC GRAVITY 1.036; UROBILINOGEN,URINE NEGATIVE mg/dL (<2.0)
[2016-10-15 15:36] LABS: ALANINE AMINOTRANSFERASE 15 U/L (9-52); ALBUMIN 3.2 g/dL (3.5-5.0); ALKALINE PHOSPHATASE 97 U/L (38-126); ANION GAP 12 (5-19); ASPARTATE AMINO TRANSFERASE 12 U/L (14-36); BILIRUBIN,DIRECT 0.4 mg/dL (0.0-0.4); BILIRUBIN,TOTAL 0.6 mg/dL (0.2-1.3); BLOOD UREA NITROGEN 7 mg/dL (7-20); CALCIUM 9.2 mg/dL (8.4-10.2); CARBON DIOXIDE 25 mmol/L (22-30); CHLORIDE 102 mmol/L (98-107); CREATININE RESULT 0.53 mg/dL (0.52-1.25); GLUCOSE 80 mg/dL (75-110); LIPASE 28.7 U/L (23-300); POTASSIUM 3.4 mmol/L (3.6-5.0); SODIUM 138.5 mmol/L (137-145); TOTAL PROTEIN 7.7 g/dL (6.3-8.2)
--- NOTE | 2016-10-15 15:44 | ER Document Report ---
ED GI/ - General Chief Complaint: Abdominal Pain Stated Complaint: ABDOMINAL PAIN Time Seen by Provider: 10/15/16 14:32 Notes: The patient is a 51-year-old female, past medical history chronic abdominal pain , presents with her usual lower abdominal cramping and pain and nausea. She is taking Tylenol with some relief of her symptoms. She had a colonoscopy last week and had some polyps removed and has an EGD scheduled in 4 days. She denies vomiting, fevers, urinary symptoms, dysuria, hematuria, rash, chest pain , shortness of breath, vaginal bleeding, rectal bleeding, or headache. TRAVEL OUTSIDE OF THE [place] IN LAST 30 DAYS: No - Related Data Allergies/Adverse Reactions: No Known Allergies Allergy (Verified 10/15/16 13:07) Past Medical History - General Information source: Patient - Social History Smoking Status: Unknown if Ever Smoked Family History: Reviewed & Not Pertinent Patient has suicidal ideation: No Patient has homicidal ideation: No Renal/ Medical History: Denies: Hx Peritoneal Dialysis GI Medical History: Reports: Hx Gastroesophageal Reflux Disease Musculoskeltal Medical History: 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 Denies: Hx Abdominal Surgery - Immunizations Hx Diphtheria, Pertussis, Tetanus Vaccination: Yes Review of Systems - Review of Systems Notes: REVIEW OF SYSTEMS: CONSTITUTIONAL: -fevers, -chills EENT: -eye pain, -difficulty swallowing, -nasal congestion CARDIOVASCULAR:-chest pain, -syncope. RESPIRATORY: -cough, -SOB GASTROINTESTINAL: + abdominal pain, +nausea, -vomiting, -diarrhea GENITOURINARY: -dysuria, -hematuria MUSCULOSKELETAL: -back pain, -neck pain SKIN: -rash or skin lesions. HEMATOLOGIC: -easy bruising or bleeding. LYMPHATIC: -swollen, enlarged glands. NEUROLOGICAL: -altered mental status or loss of consciousness, -headache, - neurologic symptoms PSYCHIATRIC: -anxiety, -depression. ALL OTHER SYSTEMS REVIEWED AND NEGATIVE. Physical Exam - Vital signs Vitals: Temp Pulse Resp BP Pulse Ox 98.1 F 81 20 120/63 97 10/15/16 13:07 10/15/16 13:07 10/15/16 13:07 10/15/16 13:07 10/15/16 13:07 - Notes Notes: PHYSICAL EXAMINATION: GENERAL: Well-appearing, well-nourished and in no acute distress. HEAD: Atraumatic, normocephalic. EYES: Pupils equal round and reactive to light, extraocular movements intact, sclera anicteric, conjunctiva are normal. ENT: nares patent, oropharynx clear without exudates. Moist mucous membranes. NECK: Normal range of motion, supple without lymphadenopathy LUNGS: Breath sounds clear to auscultation bilaterally and equal. No wheezes rales or rhonchi. HEART: Regular rate and rhythm without murmurs ABDOMEN: Soft, mild suprapubic tenderness, normoactive bowel sounds. No guarding, no rebound. No masses appreciated. EXTREMITIES: Normal range of motion, no pitting or edema. No cyanosis. NEUROLOGICAL: Cranial nerves grossly intact. Normal speech, normal gait. Normal sensory, motor, and reflex exams. PSYCH: Normal mood, normal affect. SKIN: Warm, Dry, normal turgor, no rashes or lesions noted. Course - Re-evaluation Re-evalutation: Labs and CT ordered from triage prior to my evaluation. CT does not show any acute findings and her labs are unremarkable, other than a slight leukocytosis, which she has had in the past. She had a colonoscopy and is scheduled for an EGD. She is following with GI for this chronic abdominal pain. No acute issues identified at this time. Will discharge patient home with Zofran for nausea, Naprosyn for abdominal cramping and follow-up with GI. - Vital Signs Vital signs: Temp Pulse Resp BP Pulse Ox 98.1 F 81 20 120/63 97 10/15/16 13:07 10/15/16 13:07 10/15/16 13:07 10/15/16 13:07 10/15/16 13:07 - Laboratory Result Diagrams: 10/15/16 14:30 10/15/16 14:30 Laboratory results interpreted by me: 10/15/16 10/15/16 10/15/16 14:30 14:30 14:30 WBC 12.2 H RBC 3.00 L Hgb 10.0 L Hct 31.1 L MCV 104 H RDW 16.4 H Absolute Neutrophils 9.0 H Potassium 3.4 L AST 12 L Albumin 3.2 L Urine Ketones 20 H - Diagnostic Test Radiology reviewed: Image reviewed, Reports reviewed Radiology results interpreted by me: CT A/P: Mild retroperitoneal adenopathy or fibrosis. Small amount of free fluid. No other acute issues. Discharge - Discharge Clinical Impression: Chronic abdominal pain, Nausea Condition: Stable Additional Instructions: ABDOMINAL PAIN: There are many causes of abdominal pain. Pain can mean a serious problem requiring surgery (such as appendicitis). It can also be an innocent problem that goes away on its own (such as a viral infection). Often, time must pass to determine the cause of pain. The physician does not feel that hospitalization is necessary, at present. Things may change within the next 24 hours. Call the doctor or come back for re- examination if any problems occur, such as: (1) Pain that becomes more severe, steady, or becomes concentrated in one specific area. Also, pain that is more severe with movement or coughing. (2) Vomiting that persists or becomes more frequent. (3) Blood in the vomitus, urine, or bowel movements. Blood in the stool may have a tarry or black appearance. (4) Shaking chills or fever greater than 100 degrees F. (5) The abdomen becomes more distended or swollen. (6) Bowel movements cease. (7) Failure to improve as expected. NORMAL EXAM AND WORKUP: At this time, your examination and workup show no significant abnormality. No significant abnormal physical findings are noted. All laboratory, EKG, and imaging (x-ray, CT scans, ultrasound) studies that were ordered show no significant abnormality. Although your examination and all studies that were ordered showed no significant abnormal finding, there are no examinations and no studies that are 100% accurate. There is always the possibility that some abnormality could exist and not be detected with physical examination or within the limits and capabilities of laboratory and other studies. You should return or follow up as you were instructed on your visit today for further evaluation if your symptoms do not resolve. TORADOL INJECTION: You have been given an injection of ketorolac tromethamine (Toradol). This is an excellent, safe drug for pain control. It also has potent antiinflammatory action. You should have significant pain relief within about one hour. Toradol is not addicting and is non-sedating. It does not interfere with driving or work. Call or return if you develop itching, hives, shortness of breath, or rash. PAIN MEDICATION INJECTION: You have received an injection of a pain medication. You should experience significant pain relief within 45 minutes. This drug is a narcotic - - it will impair your judgement, slow your reaction time and make you sleepy ( as well as relieve your pain). Narcotics also can cause nausea. You should not drive, work with machinery, or perform any task requiring mental alertness until all effects of the medication are gone -- six to eight hours. Do not take any alcohol, or sedatives, and do not take any other medication without checking with your physician. ANTINAUSEA MEDICATION: You have been given a medication to suppress nausea and vomiting. This type of medication can be given as a shot, pill, or suppository. It will usually last for many hours. Pills and shots usually last six to eight hours, suppositories last about 12 hours. For the typical illness, only one or two doses of the medication may be necessary. Mild lightheadedness may occur. This type of medicine can cause drowsiness. Do not drive or operate dangerous machinery while under its influence. Do not mix with alcohol. See your doctor at once if you have muscle spasms or tightness, or uncontrollable motions (particularly of the neck, mouth, or jaw). Persistent vomiting or severe lightheadedness should also be evaluated by the physician. FOLLOW-UP CARE: If you have been referred to a physician for follow-up care, call the physician s office for an appointment as you were instructed or within the next two days. If you experience worsening or a significant change in your symptoms, notify the physician immediately or return to the Emergency Department at any time for re-evaluation. Prescriptions: Ondansetron [Zofran Odt 4 mg Tablet] 1 - 2 tab PO Q4H PRN #15 tab.rapdis PRN Reason: For Nausea/Vomiting Referrals: JERRY VIRAMONTES PA-C [Primary Care Provider] - Follow up as needed
[2016-10-15] MEDS ORDERED: KETOROLAC TROMETHAMINE INJ/PF 30 MG/1 ML SDV IV ONE ×2 (16:43→17:00)
[2016-10-15] MEDS ORDERED: KETOROLAC TROMETHAMINE INJ/PF 30 MG/1 ML SDV ONE (17:01)
[2016-10-15 17:08] VITALS: BP 153/76
== END 2016-10-15 17:20 | disposition home or self-care (01) ==
LOC: ER 12:35
DX: G89.29 Other chronic pain (principal); R10.30 Lower abdominal pain, unspecified; R11.0 Nausea; D72.829 Elevated white blood cell count, unspecified; Z98.890 Other specified postprocedural states; Z86.010 Personal history of colon polyps; Z87.19 Personal history of other diseases of the digestive system
CPT/HCPCS: 99284; 96374; 36415; 83690; 85025; 80053; 81001; 74177; J1885

== ENCOUNTER → 2017-12-21 | Outpatient (CLI) | payer BC ==
--- NOTE | 2017-12-22 12:43 | XCELERA REPORT ---
[address] [address] Fax: [phone] Lower Extremity Arterial Evaluation Name: ADRIANA ALTMAN Age: 52 yrs Gender: Female : 1965 Patient Status: Outpatient Patient Location: Study Date: 12/21/2017 04:12 PM Procedure: Ankle brachial indicies performed. Reason For Study: PVD, KAREN Ordering Physician: NADIYA ESTEBAN PA-C Performed By: Antwan Newman Right Side Arterial Evaluation KAREN in Posterior Tibial: 0.45. Multiphasic waveform. Left Side Arterial Evaluation KAREN in Posterior Tibial: 0.89. Multiphasic waveform. Interpretation Summary KAREN's suggest Mild disease on left, moderate on right. : NADIYA ESTEBAN PA-C > Jayson Spann
== END ==
LOC: SP 13:10
PROVIDERS: ATTEND Physician Assistant
DX: I73.9 Peripheral vascular disease, unspecified (principal)
CPT/HCPCS: 93922